=== PATIENT | female | born 1985 | race Caucasian/White ===

== ENCOUNTER 2025-02-22 09:10 | Emergency (ER) | payer SELFPAY ==
--- NOTE | ~2025-02-22 | XR_ITS ---
CLINICAL HISTORY: cough 2 view chest x-ray Comparison: None provided Findings: No consolidation or effusion. Heart size is normal. No acute fracture. IMPRESSION: 1. No acute findings. This document has been electronically signed by: Yair Matt MD on 02/22/2025 11:07:53
[2025-02-22 09:24] VITALS: BP 124/64; PULSE 119; RESP 20; TEMP 36.6; O2SAT 96; BMI 43.9
--- NOTE | 2025-02-22 10:11 | ED_ITS ---
HPI - General Adult General Chief complaint: Upper Respiratory Symptoms Stated complaint: CP from cough, diff breathing Time Seen by Provider: 02/22/25 10:58 Source: patient Mode of arrival: ambulatory Limitations: no limitations History of Present Illness ED Provider: Meghan Meier PA-C HPI narrative: Patient is a 39 year old female with a history of asthma presenting to the emergency department today with a cough and feeling generally unwell. Patient states that over the last week she has had a cough that is not improving and feeling generally unwell. Patient states that her child is also sick at home. Patient states that she has been having to use her inhaler more often. Patient denies any other complaints at this time. Onset (ago): week(s) (1) Relieving factors: none Exacerbating factors: none Associated symptoms: cough Related Data Previous Rx's ?Medication ?Instructions ?Recorded prednisone 20 mg tablet 40 mg (2 x 20 mg) PO DAILY C OPD 02/22/25 exacerbation 5 days #10 tabs Allergies Allergy/AdvReac Type Severity Reaction Status Date / Time acetaminophen (Percocet) Allergy Unknown Vomitting Verified 02/22/25 09:25 hydromorphone (From DILAUDID) Allergy Unknown RASH/VOMIT Verified 02/22/25 09:25 oxycodone (Percocet) Allergy Unknown Vomitting Verified 02/22/25 09:25 From PERCOCET Allergy Unknown VOMITING Uncoded 11/14/19 15:40 AND HIVES Review of Systems Constitutional: Constitutional: Reports as per HPI Eyes: Eyes: Reports as per HPI ENT: Reports as per HPI Cardiovascular: Cardiovascular: Reports as per HPI Respiratory: Respiratory: Reports as per HPI Gastrointestinal: Gastrointestinal: Reports as per HPI Genitourinary: Genitourinary: Reports as per HPI Musculoskeletal: Musculoskeletal: Reports as per HPI Integumentary/Breasts: Skin/Breast: Reports as per HPI Neurologic: Reports as per HPI Psychiatric: Psychiatric: Reports as per HPI Endocrine: Endocrine: Reports as per HPI Hematologic/Lymphatic: Hematologic/Lymphatic: Reports as per HPI Allergic/Immunologic: Allergic/Immunologic: Reports as per HPI [facility] Past Medical History Attestation statement: The following information was validated with the patient. Source: old records reviewed and nursing notes reviewed Social History Social History Advance Directives: No Advance Directives Information Provided: Yes Do you have a plan to hurt others: No Plan Physical Exam ED Vital Signs: Vital Signs - 24 hr 02/22/25 09:24 02/22/25 11:20 Temperature 97.9 F 97.2 F Pulse Rate 119 H 116 H Respiratory Rate 20 20 Blood Pressure 124/64 121/68 Pulse Oximetry 96 96 Oxygen Delivery Method Room Air Room Air BMI result Body Mass Index 43.9 Const General: cooperative, alert and awake Orientation/consciousness: patient oriented x3 HENMT Head: Yes normal to inspection and Yes atraumatic Ears: hearing grossly normal bilaterally and external ears normal General nose exam: Normal external nose present, no nasal discharge noted and no epistaxis Face and sinus: Yes normal facial exam, No abrasion and No laceration Mouth: Normal oral and palatal mucosa present, no drooling and no muffled voice Eyes General: appearance normal, both eyes and all related structures Periorbital: periorbital findings normal Eyelids: Yes eyelids normal Conjunctivae: conjunctivae normal Pupils: Equal, round and reactive pupils present EOM: EOMs intact bilaterally Resp Effort & Inspection: normal respiratory effort and able to speak in complete sentences Neuro General: patient oriented x3, moves all extremities and CN's II-XI intact bilaterally Cranial nerves: Yes Equal, round and reactive pupils present Cognition (Neuro): normal cognition Extrem General: Yes full ROM Psych Appearance: grossly normal Mental Status: mental status grossly normal Attitude: cooperative Course Course Course Narrative: Rapid medical examination performed in triage by Meghan Meier PA-C: Patient is a 39 year old female presenting to the emergency department with a cough x 1 week. Detailed physical exam and review of systems are deferred to the certified credit counselor. Imaging and swabs ordered. Patient placed back in the waiting room pending room availability and results. Medical Decision Making Medical Decision Making MDM Narrative: Patient is a 39 year old female with a history of asthma presenting to the emergency department today with a cough and feeling generally unwell. Patient's physical exam was as noted in the physical exam portion of this note. Patient's chest x-ray showed no acute process. Patient's COVID-19 testing was positive. Patient's influenza and RSV testing was negative. Patient was not tachycardic during my examination. I explained my physical exam findings as well as all test results to the patient. I answered all questions asked by the patient. Given the patient's history of asthma and her length of symptoms - will prescribe with prednisone. I stressed the importance of the patient taking her medication as directed (either prescribed or as the over the counter packaging recommends). I stressed the importance of the patient following up with her primary care provider. I stressed the importance of the patient returning to the emergency department immediately if her symptoms were to worsen or if she were to develop any dizziness, shortness of breath, difficulty breathing, chest pain, blurry vision, loss of vision, nausea, vomiting, abdominal pain, fever, chills, back pain, or any other complaints. Patient verbalized agreement and understanding with this treatment plan and discharge. Differential Diagnosis Differential Diagnoses: The differential diagnosis associated with the presentation includes Cough Influenza Asthma exacerbation COVID-19 RSV Admission/Observation Consideration of admission/observation: Escalation of care including admission/observation considered Patient would have been admitted to the hospital had her work up had any findings where hospital admission was appropriate and her clinical presentation warranted hospital admission. Lab Data [facility] Lab Attestation statement: I reviewed the patient's lab results. My interpretation of these results are in the [facility] Rationale portion of this note. Labs: Lab Results 02/22/25 Range/Units 09:43 Influenza Type A (PCR) NEGATIVE (Negative) Influenza Type B (PCR) NEGATIVE (Negative) RSV RNA Qual (PCR) NEGATIVE (Negative) SARS-CoV-2 RNA (RT-PCR) POSITIVE A (Negative) Independent Interpretation I performed an independent interpretation of an: Plain X-Ray Interpretation: My interpretation is in agreement with the radiologist's impression of this imaging study as written below. CLINICAL HISTORY: cough 2 view chest x-ray Comparison: None provided Findings: No consolidation or effusion. Heart size is normal. No acute fracture. IMPRESSION: 1. No acute findings. This document has been electronically signed by: Yair Matt MD on 02/22/2025 11:07:53 Dictated By: Yair Matt MD Signed By: Electronically signed by Yair Matt MD 02/22/25 1204 Radiology Impression Discussion of test interpretation with radiology: I have reviewed the radiologist's reading. Discharge Plan Discharge Clinical Impression: COVID-19 Patient Disposition: Home, Self-Care Instructions: COVID-19 (Coronavirus Disease 2019) (ED) Additional Instructions: Your work up showed you have COVID-19. Given your history of asthma - you have been prescribed prednisone. Continue using your inhaler at home as needed. IF you are prescribed home medications and/or you are taking over the counter medications at home - it is very important you continue to do so as prescribed / directed unless told otherwise by a healthcare provider. Follow up with your primary care provider. Do your best to stay well hydrated and rest. Return to the emergency department immediately if your symptoms worsen or if you develop any numbness, tingling, dizziness, shortness of breath, difficulty breathing, chest pain, blurry vision, loss of vision, nausea, vomiting, abdominal pain, fever, chills, back pain, or any other complaints. If you do not have a primary care provider - call any of the below numbers to establish and follow up with a primary care provider. [facility] Primary Care ([place]) [phone] [place] [address], [address] [facility] Primary Care ([facility]) [phone] [place] [address], [address] [facility], [address] [facility] Primary Care ([facility]) [phone] [place] [address], [address] [facility], [address] [facility] Primary Care ([place]) [phone] [place] [address], [facility], [address] [facility] Family Medicine [phone] [place] [address], [address] Please see the information below about our Patient Portal. If you are not yet enrolled in the [facility] Patient Portal, you will receive an enrollment email invitation following your visit to any [facility] care setting. You may also self-enroll in the Patient Portal by visiting our website: [email or web address] The following information is required to access the Patient Portal: - Your [facility] Medical Record Number - Your personal home email address (must match what is in your electronic medical record, Registration staff can assist with this) - Name - Date of Capabilities of the Patient Portal: - Message some providers - View upcoming appointments - Access your health summary, medical history, and visit history - View current conditions and allergies - View procedure and lab results - View your medications, including guidelines, side effects, and precautions - Complete pre-appointment questionnaires requested by your provider - Ready summary reports of your office visits and procedures To access the Patient Portal Mobile [employer], follow these directions: - Search [facility] in the [employer] Store or [employer] Store - Download the Jorje - Search for [facility] - Enter your login/password Prescriptions: New prednisone 20 mg tablet 40 mg PO DAILY 5 Days Qty: 10 0RF Stand Alone Forms: Work/School Release Interventions: ED Discharge Assessment Last Done: 02/22/25 11:20 Discharge Date/Time: 02/22/25 11:21 Print Language: [place] Citizen
[2025-02-22 10:29] LABS: Resp Syncy Virus RNA Qual PCR NEGATIVE (Negative); SARS COV2 PCR INHOUSE POSITIVE (Negative)
--- OUTSIDE RECORDS SUMMARY | 2025-02-22 11:18 | XMS_ITS | Clinical Summary ---
Author Organization [facility] Address [address] [place] [address] Care Team Providers Care Survey Associate Name Role Phone Wilmer Mojica MD Primary Care Provider [phone] Surgical History Surgery Date Site/Laterality Comments SECTION PROCEDURE: HISTORICAL ; COMMENT: x3 OTHER SURGICAL HISTORY age 9 PROCEDURE: ---- OTHER ----; COMMENT: Hand surgery TUBAL LIGATION PROCEDURE: HISTORICAL TUBAL LIGATION; COMMENT: 2012 CHOLECYSTECTOMY 03/2016 PROCEDURE[place] CHOLE[place]ST[place] OTHER SURGICAL HISTORY Right PROCEDURE: [place] RCNSTJ TENDON SUDHA EACH W/LOCAL TISSUES SPX; COMMENT: As a child post injury Medical History Medical History Date Comments Mild asthma 07/30/2012 DX:Mild asthma Hyperlipidemia 07/30/2012 DX:Hyperlipidemi a Covid-19 DX:COVID-19 Prediabetes DX:Prediabetes Family History Medical History Relation Name Comments Breast cancer Maternal Grandmother Other: Degenerative Disc Disease Mother Anxiety Liver disease Paternal Grandmother Prostate cancer Paternal Grandmother Other: Hypothyroidism Sister Other: ADHD, PTSD, Anxiety Son Breast cancer Neg Hx Relation Name Status Comments Maternal Grandmother Mother Alive Joint pain Paternal Grandmother Sister Alive Son Alive Social History Tobacco Use Types Packs/Day Years Used Date Smoking Tobacco: Never Smokeless Tobacco: Never Alcohol Use Standard Drinks/Week Comments No 0 (1 standard drink = 0.6 oz pur e alcohol) Comments Unknown Sex and Gender Information Value Date Recorded Sex Assigned at Not on file Legal Sex Female 3:07 AM EST Gender Identity Not on file Sexual Orientation Not on file Plan of Treatment Health Maintenance Due Date Last Done Comments Hepatitis B Vaccines (1 of 3 - 19+ 3-dose series) 2005 HPV Vaccines (2 - 3-dose series) 08/25/2006 07/28/2006 Cervical Cancer Screening: P ap Smear 2007 Pneumococcal Vaccine: Pediatrics (0 to 5 Years) and At-Risk Patients (6 to 49 Years) (2 of 2 - PCV) 10/13/2020 10/14/2019 Cholesterol Screening (Lipid Panel) 01/30/2022 HIV Screening 01/30/2022 Hepatitis C Screening 01/30/2022 Social Influencers of Health Screening 01/30/2022 DTaP,Tdap,and Td Vaccines (2 - Td or Tdap) 05/11/2022 05/11/2012 Depression Screening 02/28/2024 COVID-19 Vaccine (1 - 2024-2 6 season) 2024 Influenza Vaccine (#1) 2024 3, 12/01/2008, 12/07/2006 RSV Immunization Adult Patients (1 - 1-dose 75+ series) 2061 HIB Vaccines Aged Out No longer eligi ble based on patient's age to complete this topic Hepatitis A Vaccines Aged Out No long er eligible based on patient's age to complete this topic IPV Vaccines Aged Out No longer eligi ble based on patient's age to complete this topic MMR Vaccines Aged Out No longer eligi ble based on patient's age to complete this topic Meningococcal ACWY Vaccine Aged Out N o longer eligible based on patient's age to complete this topic Meningococcal B Vaccine Aged Out No l onger eligible based on patient's age to complete this topic RSV Immunization Patients Under 20 months Aged Out No longer eligible b ased on patient's age to complete this topic Varicella Vaccines Aged Out No longer eligible based on patient's age to complete this topic Care Teams Survey Associate Relationship Specialty Start Date End Date Wilmer Mojica MD [address] [place] [address] [place] PRESTON [id number] PCP - General Internal Medicine 08/07/19
[2025-02-22 11:20] VITALS: BP 121/68; PULSE 116; RESP 20; TEMP 36.2; O2SAT 96
== END 2025-02-22 11:21 | disposition home or self-care (01) ==
PROVIDERS: Emergency Provider Emergency Medicine
DX: U07.1 COVID-19 (principal); R05.9 Cough, unspecified
CPT/HCPCS: 71046; 87637; 99282; 99283

== ENCOUNTER → 2025-02-22 10:11 | Outpatient (BNV) | payer SELFPAY | PROVIDERS: Emergency Provider Emergency Medicine; Visit Provider Specialist | DX: R05.9 Cough, unspecified (principal) | CPT/HCPCS: 71046 ==